=== PATIENT | male | born 1995 | race Caucasian/White ===

== ENCOUNTER 2021-10-26 12:30 | Emergency (ER) | payer OTHER ==
[2021-10-26 14:00] LABS: HEMOGLOBIN 14.8 gm/dl (14.0-17.5); RED BLOOD COUNT 4.95 M/UL (4.20-5.50); WHITE BLOOD COUNT 7.1 K/UL (4.5-11.0)
[2021-10-26 14:36] LABS: BUN/CREATININE RATIO 13 (0-10)
== END 2021-10-26 15:57 | disposition home or self-care (01) ==
LOC: ER1 12:30
PROVIDERS: Physician Assistant
DX: R55 Syncope and collapse (principal); G40.409 Other generalized epilepsy and epileptic syndromes, not intractable, without status epilepticus
CPT/HCPCS: 71046; 80053; 80307; 82550; 82553; 84484; 85025; 93005; 99284